=== PATIENT | male | born 1975 | race Hispanic/Latino ===

== ENCOUNTER → 2024-02-07 | Outpatient (CLI) | payer OTHER ==
--- NOTE | 2024-02-08 10:31 | HMCSR ---
APPROVED REPORT EXAM: Two-dimensional and M-mode echocardiogram with Doppler and color Doppler. INDICATION ICD: r06.09, r07.9 2D Dimensions RVDd4.5 cmLVEF(%)50.4 (>50%)LVED Vol(simp.)142.0 mL IVSd1.0 (0.7-1.1cm)FS(%)26 %LVES Vol(simp.)57.0 mL LVDd5.8 (3.8-5.6cm)Ao Root(2D)3.7 (2.0-3.7cm)LVEF(%, simp.)60 % PWd0.9 (0.7-1.1cm)LVOT diam2.3 (1.8-2.4cm)LA ESV INDEX (BP)26.84 mL/m2 LVDs4.3 (2.5-4.0cm)IVC diam2.4 cm Deformation Strain Apical 4-18.2 % Apical 2-20.2 % Apical 3-16.9 % Global Strain-18.4 % Aortic Valve AoV Vmax1.6 m/Liz Peak GR9.7 mmHgLVOT Vmax1.0 m/s AoV VTI0.3 mAo Mean GR5.2 mmHgLVOT VTI0.22 m [place] (VMAX)2.9 cm2AVA (VTI) 2.9 cm2 Mitral Valve MV E Vmax63.5 cm/sDECEL Ldpj622 ms MV A Vmax62.5 cm/sP 1/2 T72 ms E/A ratio1.0MVA (PHT)3.1 cm2 MR Max PG122 mmHg TDI E/E' Medial9.8E/E' Lateral6.9 Pulmonary Valve PV Vmax1.3 m/sPV VTI0.27 mPV Mean GR3 mmHg PV Peak GR6.4 mmHg Tricuspid Valve TR Vmax2.5 m/sRAP (EST) 8 lvNtSYAW08.7 mmHg TR Peak GR24.7 mmHg Left Ventricle The left ventricle is mildly dilated. There is normal LV segmental wall motion. There is normal left ventricular wall thickness. LVEF is 55-60%. GLS rate is -18.4% Left ventricular filling pattern is no rmal for age. Right Ventricle The right ventricle is mildly to moderately dilated. The right ventricular systolic function is sonia l. Atria The left atrium size is normal. The right atrium size is normal. Aortic Valve Aortic valve is trileaflet. Aortic valve leaflets are sclerotic but open well. Trace aortic regurgita tion. There is no aortic valvular stenosis. Mitral Valve Mitral valve leaflets are sclerotic but open well. Mitral regurgitation is trace. There is no mitral valve stenosis. Tricuspid Valve The tricuspid valve leaflets appear normal. There is trace tricuspid regurgitation. Right ventricular systolic pressure is estimated at 30-40 mmHg. Pulmonic Valve The pulmonic valve leaflets are thin and pliable; valve motion is normal. There is no pulmonic valvul ar regurgitation. Great Vessels Aortic root is within normal limits. IVC is dilated and collapses >50% with inspiration. Pericardium No pericardial effusion. Conclusion LVEF is 55-60%. GLS rate is -18.4% There is normal LV segmental wall motion. Aortic valve is trileaflet. Aortic valve leaflets are sclerotic but open well. No pericardial effusion. Aortic root is within normal limits.
== END | disposition home or self-care (01) ==
LOC: SHCH 13:49
PROVIDERS: ATTEND Internal Medicine Cardiovascular Disease
DX: I08.0 Rheumatic disorders of both mitral and aortic valves (principal); R06.09 Other forms of dyspnea; R07.9 Chest pain, unspecified
CPT/HCPCS: 93306; 93356

== ENCOUNTER → 2024-04-09 | Outpatient (CLI) | payer OTHER ==
[2024-04-09 12:08] LABS: CREATININE 0.9 mg/dL (0.5-1.3); POTASSIUM 4.4 mmol/L (3.5-5.1)
== END | disposition home or self-care (01) ==
LOC: LAB 08:19
PROVIDERS: ATTEND Internal Medicine Cardiovascular Disease
DX: R06.02 Shortness of breath (principal); R07.9 Chest pain, unspecified
CPT/HCPCS: 36415; 80048